=== PATIENT | female | born 1980 ===

== ENCOUNTER 2018-03-15 17:30 | Emergency (ER) | payer MEDICAID ==
[2018-03-15] MEDS ORDERED: LORAZEPAM 2 MG/ML SOL IV ONE (17:38)
[2018-03-15] MEDS ORDERED: LORAZEPAM 2 MG/ML SOL ONE (17:42)
[2018-03-15 18:11] VITALS: TEMP 98.1
[2018-03-15 18:15] LABS: BASOPHILS % (AUTO) 1 % (0-3); EOSINOPHILS % (AUTO) 2 % (0-9); HEMATOCRIT 42 % (35-47); HEMOGLOBIN 14.1 gm/dl (12.0-15.5); LYMPHOCYTES % (AUTO) 27.8 % (10-50); MEAN CORPUSCULAR HEMOGLOBIN 30.7 pg (27.0-32.0); MEAN CORPUSCULAR HGB CONC 33.9 gm/dl (32.0-36.0); MEAN CORPUSCULAR VOLUME 91 fL (81-99); MONOCYTES % (AUTO) 10.7 % (0-12); NEUTROPHILS % (AUTO) 57.9 % (37-80)
[2018-03-15] MEDS ORDERED: KETOROLAC TROMETHAMINE 30 MG/ML SOL ONE (18:17)
[2018-03-15] MEDS ORDERED: KETOROLAC TROMETHAMINE 30 MG/ML SOL IV ONE (18:17)
[2018-03-15 18:32] LABS: BLOOD UREA NITROGEN 10 mg/dl (7-18); CALCIUM 9.7 mg/dl (8.5-10.1); CARBON DIOXIDE 25.7 mEq/L (21-32); CHLORIDE 101 mMol/L (98-107); CREATININE 1.06 mg/dl (0.60-1.00); GLUCOSE 103 mg/dl (74-106); POTASSIUM 3.1 mMol/L (3.5-5.1); SODIUM 139 mMol/L (136-145); TROP I < 0.017 ng/ml (0.000-0.056)
[2018-03-15] MEDS ORDERED: POTASSIUM CHLORIDE 10 MEQ TER PO ONE (18:47)
[2018-03-15] MEDS ORDERED: CYCLOBENZAPRINE 10 MG TAB PO ONE (18:47)
[2018-03-15] MEDS ORDERED: POTASSIUM CHLORIDE 10 MEQ TER ONE (18:48)
[2018-03-15] MEDS ORDERED: CYCLOBENZAPRINE 10 MG TAB ONE (18:48)
[2018-03-15 18:57] VITALS: BP 132/74; PULSE 83; RESP 21; O2SAT 97
== END 2018-03-15 19:07 | disposition home or self-care (01) | DRG 563 ==
LOC: ED 17:30
DX: S46.911A Strain of unspecified muscle, fascia and tendon at shoulder and upper arm level, right arm, initial encounter (principal)
CPT/HCPCS: 36415; 80048; 84484; 85025; 93005; 96374; 96375; 99284; J1885; J2060; A9270-GY

== ENCOUNTER 2018-05-30 15:28 | Emergency (ER) | payer MEDICAID ==
[2018-05-30] MEDS ORDERED: DIPHENHYDRAMINE 50 MG/ML SOL IV ONE ×2 (16:00→16:30)
[2018-05-30] MEDS ORDERED: DIPHENHYDRAMINE 50 MG/ML SOL ONE ×2 (16:02→16:32)
[2018-05-30] MEDS ORDERED: SODIUM CHLORIDE 0.9% 1000ML 1,000 ML IV ONE (16:03)
[2018-05-30] MEDS ORDERED: HALOPERIDOL LACTATE 5 MG/ML SOL IV ONE (16:33)
[2018-05-30] MEDS ORDERED: HALOPERIDOL LACTATE 5 MG/ML SOL ONE (16:44)
[2018-05-30 16:46] LABS: BASOPHILS % (AUTO) 1 % (0-3); EOSINOPHILS % (AUTO) 1 % (0-9); HEMATOCRIT 40 % (35-47); HEMOGLOBIN 13.3 gm/dl (12.0-15.5); LYMPHOCYTES % (AUTO) 27.4 % (10-50); MEAN CORPUSCULAR HEMOGLOBIN 29.5 pg (27.0-32.0); MEAN CORPUSCULAR VOLUME 89 fL (81-99); MONOCYTES % (AUTO) 10.4 % (0-12); NEUTROPHILS % (AUTO) 60.2 % (37-80)
[2018-05-30 16:51] LABS: ALKALINE PHOSPHATASE 116 IU/L (46-116); ALT 35 IU/L (14-63); AST 29 IU/L (15-37); BILIRUBIN,TOTAL 0.8 mg/dl (0.2-1.0); BLOOD UREA NITROGEN 18 mg/dl (7-18); CALCIUM 10.1 mg/dl (8.5-10.1); CARBON DIOXIDE 27.3 mEq/L (21-32); CHLORIDE 101 mMol/L (98-107); CREATININE 0.88 mg/dl (0.60-1.00); GLUCOSE 90 mg/dl (74-106); SODIUM 140 mMol/L (136-145); TOTAL PROTEIN 7.8 gm/dl (6.4-8.2)
[2018-05-30 16:52] LABS: POTASSIUM 2.6 mMol/L (3.5-5.1)
[2018-05-30 17:36] LABS: APPEARANCE,URINE Cloudy; BILIRUBIN,URINE NEGATIVE (NEGATIVE); COLOR,URINE Yellow; GLUCOSE, URINE (UA) NEGATIVE (NEGATIVE); KETONES,URINE 1+ (NEGATIVE); LEUKOCYTE ESTERASE ,URINE NEGATIVE (NEGATIVE); NITRATE,URINE POSITIVE (NEGATIVE); OCCULT BLOOD,URINE TRACE LYSED (NEG-TRACE); PH,URINE 6.5
[2018-05-30 17:56] LABS: AMPHETAMINES NEGATIVE (NEGATIVE); BACTERIA 4+ (< 1+); BARBITUATES NEGATIVE (NEGATIVE); BENZODIAZEPINES NEGATIVE (NEGATIVE); CANNABINOL(THC) NEGATIVE (NEGATIVE); COCAINE(COC) NEGATIVE (NEGATIVE); CRYSTALS 02 CALCIUM OXALATE (0-3 AVE/HPF); METHADONE NEGATIVE (NEGATIVE); METHAMPHETAMINES POSITIVE (NEGATIVE); OPIATES(OPI) NEGATIVE (NEGATIVE); OXYCODONE(OXY) NEGATIVE (NEGATIVE); PROPOXYPHENE(PPX) NEGATIVE (NEGATIVE); TRICYCLIC ANTIDEPRESSANTS NEGATIVE (NEGATIVE)
[2018-05-30] MEDS ORDERED: POTASSIUM CHLORIDE 10 MEQ TER PO ONE (18:41)
[2018-05-30] MEDS ORDERED: CEFTRIAXONE 1 GM PDS 1 GM in SODIUM CHLORIDE 0.9% 50 ML 50 ML IV ONE (18:42)
[2018-05-30] MEDS ORDERED: POTASSIUM CHLORIDE 10 MEQ TER ONE (18:47)
[2018-05-30] MEDS ORDERED: CEFTRIAXONE 1 GM PDS ONE (18:47)
[2018-05-30 19:37] LABS: ALCOHOL < 0.003 gm/dl (0.000-0.08)
[2018-05-30] MEDS ORDERED: POTASSIUM CHLORIDE 2 MEQ/ML 20 MEQ, LIDOCAINE HCL 1% MDV 2 ML in SODIUM CHLORIDE 0.9% 2... IV ONE (19:41)
[2018-05-30] MEDS ORDERED: SODIUM CHLORIDE/KCL 20MEQ 1,000 ML IV ONE (19:46)
[2018-05-30] MEDS ORDERED: LIDOCAINE HCL 1% MPF 30 SOL ONE (19:47)
[2018-05-30] MEDS ORDERED: POTASSIUM CHLORIDE IV ONE ×2 (19:48→20:15)
[2018-05-30] MEDS ORDERED: SODIUM CHLORIDE IV ONE ×2 (19:48→20:15)
[2018-05-30] MEDS ORDERED: LIDOCAINE HCL 1% IV ONE (19:48)
[2018-05-30] MEDS ORDERED: POTASSIUM CHLORIDE 2 MEQ/ML SOL IV ONE (19:51)
[2018-05-30] MEDS ORDERED: LIDOCAINE 1% IV ONE (20:15)
[2018-05-30] MEDS ORDERED: IBUPROFEN 400 MG TAB PO ONE (20:16)
[2018-05-30] MEDS ORDERED: IBUPROFEN 400 MG TAB ONE (20:20)
[2018-05-30] MEDS ORDERED: GABAPENTIN 300 MG CAP ONE (20:23)
[2018-05-30] MEDS ORDERED: GABAPENTIN 300 MG CAP PO SCH (20:30)
[2018-05-30 21:20] VITALS: RESP 18
[2018-05-30 22:34] VITALS: O2SAT 98
[2018-05-30 23:35] VITALS: BP 105/61; PULSE 88
[2018-05-31] MEDS ORDERED: LORAZEPAM 0.5 MG TAB PO ONE (00:42)
[2018-05-31] MEDS ORDERED: LORAZEPAM 0.5 MG TAB ONE (00:43)
== END 2018-05-31 00:52 | disposition other institution (70) | DRG 897 ==
LOC: ED 15:28
DX: F19.122 Other psychoactive substance abuse with intoxication with perceptual disturbances (principal); N39.0 Urinary tract infection, site not specified; E87.6 Hypokalemia
CPT/HCPCS: 36415; 80053; 80305; 80307; 81001; 83735; 84132; 84703; 85025; 87077; 87088; 87186; 93005; 96365; 96366; 96374; 96375; 99070; 99284; 99285; J0696; J1200; J1630; J3480; A9270-GY; J2001

== ENCOUNTER 2018-10-16 11:35 | Emergency (ER) | payer MEDICAID ==
[2018-10-16] MEDS ORDERED: NALOXONE HYDROCHLORIDE 0.4 MG/ML SOL ONE ×2 (11:36→11:49)
[2018-10-16] MEDS ORDERED: NALOXONE HYDROCHLORIDE 0.4 MG/ML SOL IV ONE (11:36)
[2018-10-16] MEDS ORDERED: ONDANSETRON HCL 4 MG/2 ML SOL ONE (11:44)
[2018-10-16] MEDS: SODIUM CHLORIDE 0.9% FLUSH 10 ML SOL IV PRN ×2 (11:45→11:47)
[2018-10-16 11:59] VITALS: TEMP 97.3
[2018-10-16 12:00] LABS: BASOPHILS % (AUTO) 1 % (0-3); EOSINOPHILS % (AUTO) 2 % (0-9); HEMATOCRIT 43 % (35-47); HEMOGLOBIN 14.5 gm/dl (12.0-15.5); LYMPHOCYTES % (AUTO) 28.2 % (10-50); MEAN CORPUSCULAR HEMOGLOBIN 30.5 pg (27.0-32.0); MEAN CORPUSCULAR HGB CONC 33.5 gm/dl (32.0-36.0); MEAN CORPUSCULAR VOLUME 91 fL (81-99); MONOCYTES % (AUTO) 6.9 % (0-12); NEUTROPHILS % (AUTO) 61.4 % (37-80)
[2018-10-16] MEDS ORDERED: SODIUM CHLORIDE 0.9% 1000ML 1,000 ML IV SCH (12:00)
[2018-10-16] MEDS ORDERED: ONDANSETRON HCL 4 MG/2 ML SOL IV ONE (12:02)
[2018-10-16 12:16] LABS: ALBUMIN 4.4 gm/dl (3.4-5.0); BILIRUBIN,TOTAL 0.5 mg/dl (0.2-1.0); CALCIUM 9.5 mg/dl (8.5-10.1); CARBON DIOXIDE 24.7 mEq/L (21-32); CREATININE 0.75 mg/dl (0.60-1.00); POTASSIUM 3.9 mMol/L (3.5-5.1); TOTAL PROTEIN 8.4 gm/dl (6.4-8.2)
[2018-10-16 12:18] LABS: ACETAMINOPHEN < 2 ug/ml (10-30); SALICYLATE 6.9 mg/dl (2.8-30.0)
[2018-10-16 12:19] LABS: ALCOHOL < 0.003 gm/dl (0.000-0.08)
[2018-10-16 12:49] LABS: APPEARANCE,URINE Slightly Cloudy; BILIRUBIN,URINE NEGATIVE (NEGATIVE); COLOR,URINE Yellow; GLUCOSE, URINE (UA) NEGATIVE (NEGATIVE); KETONES,URINE 2+ (NEGATIVE); LEUKOCYTE ESTERASE ,URINE NEGATIVE (NEGATIVE); NITRATE,URINE NEGATIVE (NEGATIVE); OCCULT BLOOD,URINE NEGATIVE (NEG-TRACE); UROBILINOGEN,URINE 0.2 (0.2-1.0 EU)
[2018-10-16 12:56] LABS: BARBITUATES NEGATIVE (NEGATIVE); BENZODIAZEPINES NEGATIVE (NEGATIVE); METHADONE NEGATIVE (NEGATIVE); TRICYCLIC ANTIDEPRESSANTS NEGATIVE (NEGATIVE)
[2018-10-16 12:57] LABS: AMPHETAMINES POSITIVE (NEGATIVE); CANNABINOL(THC) NEGATIVE (NEGATIVE); COCAINE(COC) NEGATIVE (NEGATIVE); METHAMPHETAMINES POSITIVE (NEGATIVE); OPIATES(OPI) NEGATIVE (NEGATIVE); OXYCODONE(OXY) NEGATIVE (NEGATIVE); PROPOXYPHENE(PPX) NEGATIVE (NEGATIVE)
[2018-10-16 13:03] LABS: BACTERIA RARE (< 1+); CRYSTALS NEGATIVE (0-3 AVE/HPF); RBC,URINE NEG (0-3AV/HPF); WBC,URINE 0-1 (0-5AV/HPF)
[2018-10-16] MEDS ORDERED: HALOPERIDOL LACTATE 5 MG/ML SOL IM ONE (13:19)
[2018-10-16] MEDS ORDERED: HALOPERIDOL LACTATE 5 MG/ML SOL ONE (13:22)
[2018-10-16] MEDS ORDERED: LORAZEPAM 0.5 MG TAB PO ONE (18:16)
[2018-10-16] MEDS ORDERED: LORAZEPAM 0.5 MG TAB ONE (18:17)
[2018-10-16 19:06] VITALS: BP 106/77; PULSE 77; RESP 18; O2SAT 99
== END 2018-10-16 18:23 | disposition short-term general hospital (02) | DRG 897 ==
LOC: ED 11:35
DX: F15.122 Other stimulant abuse with intoxication with perceptual disturbance (principal)
CPT/HCPCS: 80053; 80305; 80307; 81001; 84443; 84703; 85025; 93005; 96365; 96366; 96372; 96374; 96375; 99284; 99285; J1630; J2310; J2405; A9270-GY